=== PATIENT | male | born 1965 | race Caucasian/White ===

== ENCOUNTER 2021-10-25 06:54 | Day surgery (SDC) | payer OTHER, MEDICARE ==
[2021-10-23 12:25] VITALS: BP 178/81
[2021-10-23 12:46] LABS: CREATININE 0.8 mg/dL (0.5-1.5); POTASSIUM 4.4 mmol/L (3.5-5.1)
[~2021-10-25] VITALS: Ht 170.2 cm; Wt 72.6 kg
[2021-10-25] VITALS (14 sets, daily range): BP systolic 105–145; BP diastolic 61–84
[2021-10-25] MEDS: CEFAZOLIN SODIUM 1 GM VIAL IVP SCH ×2 (06:00→08:35)
[~2021-10-25 06:54] MED LIST: AMLO-258 PO; CARV25TA PO; GLIP5TAB11 PO; LISI20TA24 PO; METF-444 PO; PRAV20TA4 PO
[2021-10-25] MEDS ORDERED: 0.9%NACL 1000ML 1,000 ML IV ONE (07:12)
[2021-10-25] MEDS ORDERED: BUPIVACAINE/PF 0.25% 30ML VIAL IJ ONE (07:30)
[2021-10-25] MEDS ORDERED: NEOMY SULF/BACITRAC ZN/POLY OINT 30GM TUBE TP ONE (07:31)
[2021-10-25] MEDS ORDERED: MORPHINE PF 100MG/10ML AMP IV ONE (07:37)
[2021-10-25] MEDS ORDERED: LIDOCAINE PF 100MG/5ML (2%) SYRINGE 5ML ONE (07:39)
[2021-10-25] MEDS ORDERED: MIDAZOLAM HCL 1 MG/ML 2ML VIAL ONE (07:39)
[2021-10-25] MEDS ORDERED: PROPOFOL 10 MG/ML 20ML VIAL IV ONE (07:39)
[2021-10-25] MEDS ORDERED: EPHEDRINE SULFATE 50 MG/ML AMPULE ONE (09:21)
== END 2021-10-25 12:10 | disposition home or self-care (01) ==
LOC: DAH 06:54
PROVIDERS: ATTEND Urology
DX: N47.1 Phimosis (principal); Z20.822 Contact with and (suspected) exposure to COVID-19; I10 Essential (primary) hypertension; E11.9 Type 2 diabetes mellitus without complications; E78.5 Hyperlipidemia, unspecified; G80.9 Cerebral palsy, unspecified; Z79.84 Long term (current) use of oral hypoglycemic drugs; Z79.899 Other long term (current) drug therapy; Z98.890 Other specified postprocedural states; Z86.73 Personal history of transient ischemic attack (TIA), and cerebral infarction without residual deficits
CPT/HCPCS: 36415; 54161; 80048; 82948 ×2; 87635; A4215; A4221; A4222; A4223; A4600; A4663; A6260; C9803; J0690; J2001; J2250; J2274; J2704; J3490 ×2; J7030

== ENCOUNTER → 2023-05-06 | Outpatient (CLI) | payer OTHER, MEDICARE | END | disposition home or self-care (01) | LOC: SHCH 12:40 | PROVIDERS: ATTEND Internal Medicine Cardiovascular Disease | DX: I08.0 Rheumatic disorders of both mitral and aortic valves (principal); R94.31 Abnormal electrocardiogram [ECG] [EKG] | CPT/HCPCS: 93306 ==

== ENCOUNTER → 2023-06-12 | Outpatient (CLI) | payer OTHER, MEDICARE ==
[~2023-06-12] MED LIST changes: -GLIP5TAB11 PO; +GLIP5TAB15 PO; +REGADENOSON 0.4 MG/5 ML PF SYG IVP ONE
== END | disposition home or self-care (01) ==
LOC: SHCH 08:19
PROVIDERS: ATTEND Internal Medicine Cardiovascular Disease
DX: I25.5 Ischemic cardiomyopathy (principal); R94.39 Abnormal result of other cardiovascular function study; I50.22 Chronic systolic (congestive) heart failure; I25.2 Old myocardial infarction
CPT/HCPCS: 78452; 93017; J2785; A9500 ×2; 96374

== ENCOUNTER 2024-07-15 06:51 | Observation (INO) | payer OTHER, MEDICARE ==
[2024-07-11 09:27] VITALS: BP 162/90; PULSE 78; RESP 16; TEMP 97.6
[2024-07-11 09:30] LABS: BASOPHILS # (AUTO) 0.05 K/uL (0.00-0.20); BASOPHILS % (AUTO) 0.5 % (0.0-5.0); EOSINOPHILS # (AUTO) 0.19 K/uL (0.00-0.70); IMMATURE GRANULOCYTE ABSOLUTE 0.05 K/uL (0-1); LYMPHOCYTES # (AUTO) 3.1 K/uL (1.0-4.8); MEAN CORPUSCULAR HEMOGLOBIN 28.9 pg (27.0-33.0); MEAN CORPUSCULAR HGB CONC 33.5 g/dL (32.0-36.0); MEAN CORPUSCULAR VOLUME 86.3 fL (79-99); MONOCYTES # (AUTO) 0.6 K/uL (0.1-1.0); NEUTROPHILS # (AUTO) 5.5 K/uL (1.8-7.7); PLATELET COUNT (AUTO) 179 K/uL (130-400); RED BLOOD CELL COUNT(AUTO) 5.33 MIL/uL (4.50-6.20); RED CELL DISTRIBUTION WIDTH 14.3 % (11.0-15.5); WHITE BLOOD COUNT (AUTO) 9.5 K/uL (4.8-10.8)
[2024-07-11 09:41] LABS: APPEARANCE,URINE CLEAR (CLEAR); BILIRUBIN,URINE NEGATIVE (NEGATIVE); COLOR,URINE COLORLESS (YELLOW); GLUCOSE, URINE (UA) NEGATIVE (NEGATIVE); KETONES,URINE NEGATIVE (NEGATIVE); LEUKOCYTE ESTERASE ,URINE NEGATIVE Leu/uL (NEGATIVE); NITRATE,URINE NEGATIVE (NEGATIVE); OCCULT BLOOD,URINE NEGATIVE (NEGATIVE); PH,URINE 6.5 (5.0-8.0); PROTEIN,URINE NEGATIVE (NEGATIVE); UROBILINOGEN,URINE 0.2 mg/dL (0.2-1.0)
[2024-07-11 09:43] LABS: ALBUMIN 3.8 g/dL (3.5-5.0); BILIRUBIN,TOTAL 0.5 mg/dL (0.2-1.0); POTASSIUM 4.6 mmol/L (3.5-5.1); PROTHROMBIN TIME 10.8 SEC (9.6-11.6); TOTAL PROTEIN, SERUM 7.9 g/dL (6.0-8.3)
[2024-07-11 09:44] LABS: ADD UA MICROSCOPIC NO
[2024-07-11 09:44] LABS: PARTIAL THROMBOPLASTIN TIME 30.5 SEC (26.3-35.5)
[2024-07-15] VITALS (27 sets, daily range): BP systolic 97–165; BP diastolic 56–86; PULSE 55–117; RESP 12–20; TEMP 97.1–98.6
[~2024-07-15] VITALS: Ht 170.2 cm; Wt 71.7 kg
[~2024-07-15 06:51] MED LIST changes: +AMLO-257 PO; -AMLO-258 PO; +ASPI-1443 PO; +BACL10TA PO; -CARV25TA PO; -GLIP5TAB15 PO; +ICOS1CAP2 PO; +LABE200T7 PO; -LISI20TA24 PO; +NITR0.4T50 SL; +PIOG30TA70 PO; -PRAV20TA4 PO; -REGADENOSON 0.4 MG/5 ML PF SYG IVP ONE; +ROSU40TA88 PO; +SACU1TAB4 PO; +SPIR25TA6 PO
[2024-07-15] MEDS: ceFAZolin SODIUM 2 GM VIAL ONE (07:27)
[2024-07-15] MEDS: 0.9%NACL 1000ML 1,000 ML IV ONE (07:42)
[2024-07-15] MEDS ORDERED: BUPIvacaine/PF 0.25% 30ML VIAL IJ ONE (07:53)
[2024-07-15] MEDS ORDERED: dexaMETHasone SOD PHOSPHATE 10MG/ML 1ML VIAL ONE (08:31)
[2024-07-15] MEDS ORDERED: LIDOCAINE PF 100MG/5ML (2%) SYRINGE 5ML ONE (08:31)
[2024-07-15] MEDS ORDERED: ondanSETRON 4MG INJ ONE (08:32)
[2024-07-15] MEDS ORDERED: MIDAZOLAM HCL 1 MG/ML 2ML VIAL ONE (08:32)
[2024-07-15] MEDS ORDERED: rocuRONium bROMide 10MG/1ML 5ML VL ONE (08:32)
[2024-07-15] MEDS ORDERED: FENTanyl CITRate PF 50 MCG/1 ML 5ML AMP IV ONE (08:32)
[2024-07-15] MEDS ORDERED: proPOFol 10 MG/ML 20ML VIAL IV ONE (08:32)
[2024-07-15] MEDS: ceFAZolin SODIUM 2 GM VIAL IVPB ONE (09:00)
[2024-07-15] MEDS ORDERED: ePHEDrine SULFate 50 MG/ML AMPULE ONE (09:03)
[2024-07-15] MEDS ORDERED: NEOSTIGMINE METHYLSULFATE 1MG/ML IV ONE (09:29)
[2024-07-15] MEDS ORDERED: GLYCOPYRROLATE 0.2 MG/ML 5 ML VIAL ONE (09:29)
--- NOTE | 2024-07-15 10:10 | OP ---
Operative Note: DATE OF PROCEDURE: 07/15/24 SURGEON: JUANCARLOS HENDERSON MD PROCEDURE PERFORMED: Laparoscopic cholecystectomy. PREOPERATIVE DIAGNOSIS: Symptomatic cholelithiasis POSTOPERATIVE DIAGNOSIS: Same ANESTHESIA: General endotracheal. SURGEON: Juancarlos Henderson MD DEVICE LEFT IN PLACE: None. FLUIDS AND BLOOD PRODUCTS: Per anesthesia report. SPECIMENS REMOVED: Gallbladder. COMPLICATIONS: None immediate. PATIENT CONDITION: Stable. DESCRIPTION OF PROCEDURE: The patient was brought to the operating room and placed on the operating table in a supine position. Once general endotracheal anesthesia was achieved the patient's abdomen is prepped and draped in sterile fashion. We then proceeded to create a midline incision right at the umbilicus and dissected through the skin and subcutaneous tissue to expose the fascia. Divided the fascia at the midline and entered the abdominal cavity and then proceeded to introduce our origin trocar and obtained our pneumoperitoneum. Under direct visualization we then placed a 5 mm port in the epigastric position and then two 5 mm ports in the right flank. We identified the gallbladder and it was covered by omental adhesions. I bluntly and sharply dissected all the omental adhesions of the gallbladder until we were able to see the gallbladder. I then proceeded to retract the gallbladder from the fundus and infundibulum and started our dissection of the hilum. We bluntly dissected the hilum to expose the cystic duct and cystic ar tiffanie and once we had a critical view for safety. we proceeded to place two clips in the cystic duct proximally and distally. We divided between the clips and then did the same with our cystic artery. We then proceeded to remove the gallbladder off the liver bed using Bovie cautery and placed the gallbladder into an EndoCatch bag. Once this was done, we then proceeded to evaluate the liver bed for hemostasis. We made sure there was no bile leaks or any bleeding. We then proceeded to irrigate the right upper quadrant and removed all our ports under direct visualization, then removing the gallbladder through the umbilical port in the EndoCatch bag. We then closed our fascia at the umbilicus using 0 Vicryl in [id number] fashion. The skin incisions were closed using 4-0 Monocryl in subcuticular fashion. Dermabond were applied over top and a sterile dressing was applied. The patient tolerated the procedure well. JUANCARLOS HENDERSON MD Jul 15, 2024 10:10
[2024-07-15] MEDS ORDERED: NITROGLYCERIN 0.4 MG SL TAB SL PRN (11:30)
[2024-07-15] MEDS: traMADol HCL 50 MG TABLET PO SCH (11:30)
[2024-07-15] MEDS ORDERED: morPHINE 4 MG SYG IVP PRN (11:30)
[2024-07-15] MEDS ORDERED: BACLOFEN 10 MG TABLET PO PRN (11:30)
[2024-07-15] MEDS: ibuPROFEN 800 MG TAB PO SCH (13:15)
[2024-07-15] MEDS: traMADol HCL 50 MG TABLET PO PRN (13:15)
--- NOTE | 2024-07-15 14:47 | NUR ---
Attempted PT eval at 1335. Pt still groggy and on post op vitals. RHR >120 and patient with nausea. Pt reports at home he mobilizes with a WC and rarely ambulates or uses his crutches due to CVA. PT team to follow for eval with transfer and WC mobility if patient not appropriate for typical post abd surgery ambulation
[2024-07-15] MEDS: FISH OIL 1000 MG/CAP PO SCH (17:00)
[2024-07-15] MEDS ORDERED: DEXTROSE 50%-WATER 50 ML DISP.SYRIN IV PRN (17:30)
[2024-07-15] MEDS ORDERED: GLUCAGON 1MG KIT 1 MG ML IM PRN (17:30)
[2024-07-15] MEDS: INSULIN humuLIN R 100 UNIT/ML 3ML SQ SCH (17:30)
[2024-07-15] MEDS: SACUBITRIL/VALSARTAN 1 EACH TABLET PO SCH (21:43)
[2024-07-15] MEDS: atorVAStatin 40 MG TABLET PO SCH (21:43)
[2024-07-15] MEDS: LAbetaLOL HCL 200 MG TABLET PO SCH (21:44)
[2024-07-16] VITALS: BP 126/78; PULSE 97; RESP 20; TEMP 98.3
[2024-07-16 04:00] VITALS: BP 139/74; PULSE 89; RESP 10; TEMP 97.9
[2024-07-16 04:54] LABS: HEMATOCRIT 46.9 % (42-54); MEAN CORPUSCULAR HEMOGLOBIN 28.5 pg (27.0-33.0); MEAN CORPUSCULAR HGB CONC 33.7 g/dL (32.0-36.0); MEAN CORPUSCULAR VOLUME 84.5 fL (79-99); RED BLOOD CELL COUNT(AUTO) 5.55 MIL/uL (4.50-6.20); WHITE BLOOD COUNT (AUTO) 17.5 K/uL (4.8-10.8)
[2024-07-16 05:36] LABS: ALBUMIN 3.5 g/dL (3.5-5.0); BILIRUBIN,TOTAL 0.6 mg/dL (0.2-1.0); CREATININE 1.4 mg/dL (0.5-1.3); POTASSIUM 4.6 mmol/L (3.5-5.1); TOTAL PROTEIN, SERUM 7.6 g/dL (6.0-8.3)
[2024-07-16 08:06] VITALS: BP 136/73; PULSE 94; RESP 18; TEMP 98.3
[2024-07-16] MEDS: metFORmin HCL 500 MG TABLET PO SCH (08:39)
[2024-07-16] MEDS: ASPIRIN 81 MG EC TAB PO SCH (08:40)
[2024-07-16] MEDS: PIOGLITAZONE 30MG TAB PO SCH (08:40)
[2024-07-16] MEDS: amLODIPine 5 MG TAB PO SCH (08:41)
[2024-07-16] MEDS: SPIRONOLACTONE 25 MG TAB PO SCH (08:43)
--- NOTE | 2024-07-16 11:24 | DS ---
Discharge Summary HOSPITAL COURSE SUMMARY: Status post cholecystectomy. Doing well. Tolerating his diet. It is passing gas and had a small smear of a bowel movement. Pain is minimal and controlled with oral pain medication. No nausea no vomiting. APPLICATION DEVELOPMENT PROJECT MANAGER(S): None PROCEDURES: Laparoscopic cholecystectomy PROBLEM(S): [] DISCHARGE INSTRUCTIONS: Patient to wear abdominal binder for transfers. Sister is to come and be present for the physical therapy evaluation on how to do the transfers postop. Follow up in the office in two weeks. Stool softeners as needed for constipation Home Meds Reported Medications Spironolactone (Spironolactone) 25 Mg Tablet, 25 MG PO DAILY, TAB 07/11/24 Pioglitazone HCl (Pioglitazone HCl) 30 Mg Tablet, 30 MG PO DAILY, TAB 07/11/24 Metformin HCl (Metformin HCl) 500 Mg Tablet, 500 MG PO DAILY, TAB 07/11/24 Icosapent Ethyl (Icosapent Ethyl) 1 Gram Capsule, 2 GM PO BIDMEALS, CAP 07/11/24 Rosuvastatin Calcium (Rosuvastatin Calcium) 40 Mg Tablet, 40 MG PO HS, TAB 07/11/24 Aspirin (Aspirin EC) 81 Mg Tablet.dr, 81 MG PO DAILY, TAB 07/11/24 Sacubitril/Valsartan (Entresto 97 mg-103 mg Tablet) 97 Mg-103 Mg Tablet, 1 EACH PO BID, TAB 07/11/24 Labetalol HCl (Labetalol HCl) 200 Mg Tablet, 200 MG PO BID, TAB 07/11/24 Amlodipine Besylate (Amlodipine Besylate) 5 Mg Tablet, 5 MG PO DAILY, TAB 07/11/24 Nitroglycerin (Nitroglycerin) 0.4 Mg Tab.subl, 0.4 MG SL AD PRN for CHEST PAIN, TAB.SL 07/11/24 Baclofen (Baclofen) 10 Mg Tablet, 10 MG PO BID PRN for PAIN, TAB 07/11/24 Discontinued Reported Medications Nitroglycerin (Nitroglycerin) 0.4 Mg Tab.subl, 0.4 MG SL AD PRN for CHEST PAIN, TAB.SL 07/11/24 Pravastatin Sodium (Pravastatin Sodium) 20 Mg Tablet, 20 MG PO HS, TAB 10/24/21 Amlodipine Besylate (Amlodipine Besylate) 10 Mg Tablet, 10 MG PO AM for 30 Days, #30 TAB 0 Refills 10/24/21 Metformin HCl (Metformin HCl) 500 Mg Tablet, 500 MG PO AM, TAB 10/24/21 Glipizide (Glipizide) 5 Mg Tablet, 5 MG PO AM, TAB 10/24/21 Carvedilol (Carvedilol) 25 Mg Tablet, 25 MG PO BID, TAB 10/24/21 Lisinopril (Lisinopril) 20 Mg Tablet, 20 MG PO AM, TAB 10/24/21 JUANCARLOS HENDERSON MD Jul 16, 2024 11:24
[2024-07-16 11:30] VITALS: BP 134/72; PULSE 93; RESP 18; TEMP 98
== END 2024-07-16 15:00 | disposition home or self-care (01) ==
LOC: DAH 06:51 → DAHIP 06:52 → DAH 06:52 → 4BH 10:34
PROVIDERS: ADMIT Student in an Organized Health Care Education/Training Program; ATTEND Student in an Organized Health Care Education/Training Program
DX: K80.10 Calculus of gallbladder with chronic cholecystitis without obstruction (principal); K82.8 Other specified diseases of gallbladder; G89.18 Other acute postprocedural pain; K66.0 Peritoneal adhesions (postprocedural) (postinfection); E11.9 Type 2 diabetes mellitus without complications; I10 Essential (primary) hypertension; E75.5 Other lipid storage disorders; Z86.73 Personal history of transient ischemic attack (TIA), and cerebral infarction without residual deficits; Z79.899 Other long term (current) drug therapy; Z86.2 Personal history of diseases of the blood and blood-forming organs and certain disorders involving the immune mechanism; Z79.84 Long term (current) use of oral hypoglycemic drugs
CPT/HCPCS: 80053 ×2; 85025; 85610; 85730; 81003; 36415 ×2; 47562; 88304; 82948 ×6; 64488; 85027; A6260; J1815; J0665 ×2; A4663; J7030 ×2; J3010; J1100; J3490 ×3; J2003; J2250; J2704; J2405; J2710; J0690 ×2; C1769 ×3; A4649 ×2; A4215; A4223; A4222; A4221; A4600; G0378

== ENCOUNTER → 2025-03-15 | Outpatient (CLI) | payer OTHER, MEDICARE | END | disposition home or self-care (01) | LOC: WHH 10:27 | PROVIDERS: ATTEND Internal Medicine | DX: E11.51 Type 2 diabetes mellitus with diabetic peripheral angiopathy without gangrene (principal); I70.209 Unspecified atherosclerosis of native arteries of extremities, unspecified extremity; Z79.899 Other long term (current) drug therapy; Z86.73 Personal history of transient ischemic attack (TIA), and cerebral infarction without residual deficits | CPT/HCPCS: 93922 ==

== ENCOUNTER → 2025-08-21 | Outpatient (CLI) | payer OTHER, MEDICAID ==
[~2025-08-21] MED LIST changes: +LABE-10 PO; -LABE200T7 PO
--- NOTE | 2025-08-21 20:31 | HMCIMG ---
STUDY: MRI cervical spine without IV contrast. 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 TECHNIQUE: Multiplanar, multisequence MRI of the cervical spine was performed without intravenous contrast. COMPARISON: None available. FINDINGS: Alignment: Loss of normal cervical lordosis. No traumatic malalignment. Vertebrae: No acute compression fracture or infiltrative marrow process. Prominent anterior and posterior marginal osteophytes. Disc desiccation consistent with grade III???IV degenerative disc disease. Spinal Cord: Ventral cord indentation at multiple levels. Myelomalacia signal identified at the cervicomedullary junction. Degenerative Changes (Global): Extensive uncovertebral and facet joint degeneration throughout the subaxial cervical spine. Ossification of the posterior longitudinal ligament (OPLL) contributes to canal narrowing. Findings by Level: C3???C4 through C6???C7: Multilevel disc???osteophyte complexes producing thecal sac compression and grade II central canal stenosis, with ventral cord indentation. No significant neural foraminal stenosis. C5???C6: Annular fissure with left posterior paracentral disc protrusion, contacting the left ventral nerve root. Contributes to canal narrowing. C1???C2 (Atlanto-axial Joint): Degenerative changes of the lateral atlanto-axial joints. In combination with OPLL, this results in grade III central canal stenosis with cord compression. Paraspinal Soft Tissues: Normal. IMPRESSION: * Ossification of the posterior longitudinal ligament (OPLL) and lateral atlanto-axial joint degeneration producing grade III central canal stenosis with cord compression and myelomalacia at the cervicomedullary junction . Severe multilevel cervical spondylosis with global grade III???IV disc degeneration, anterior/posterior osteophytes, uncovertebral and facet arthropathy, and loss of cervical lordosis * Multilevel disc???osteophyte complexes (C3???C7) causing thecal sac compression and grade II canal stenosis with ventral cord indentation. * Left posterior paracentral disc protrusion at C5???C6 with annular fissure and left ventral nerve-root contact. * No acute fracture or traumatic subluxation. /[place]
== END | disposition home or self-care (01) ==
LOC: RAH 15:01
PROVIDERS: ATTEND Psychiatry & Neurology Neurology
DX: M47.812 Spondylosis without myelopathy or radiculopathy, cervical region (principal); G80.1 Spastic diplegic cerebral palsy; M25.78 Osteophyte, vertebrae; M48.02 Spinal stenosis, cervical region; G95.89 Other specified diseases of spinal cord; M50.322 Other cervical disc degeneration at C5-C6 level
CPT/HCPCS: 72141

== ENCOUNTER → 2025-08-22 | Outpatient (CLI) | payer OTHER, MEDICAID ==
--- NOTE | 2025-08-24 15:36 | HMCIMG ---
EXAM: MR Brain Without IV Contrast CLINICAL HISTORY: G80.1 Spastic diplegic cerebral palsy (Hx) / G80.1 Spastic diplegic cerebral palsy (DICOM Hx) (DICOM Hx) TECHNIQUE: Multiplanar multi-sequence MRI of the brain. CONTRAST: None COMPARISON: None provided. FINDINGS: Mild age-related degenerative change with prominent sulci and basilar cisterns. T2 and FLAIR hyperintensities in the deep periventricular white matter in the deep periventricular white matter and baker radiata sequela of chronic microvascular ischemic change. A 1.1 x 1.5 cm T2 hyperintense lesion in the dorsomedial aspect of the left thalamus with a T2 hypointense rim sequela of prior hemorrhage. Subdural hygroma along the anterior interhemispheric fissure at the level of the superior and middle inferior frontal gyri. No abnormal parenchymal signal is present. No evidence of acute cortical infarction, hemorrhage, mass, or mass effect. The ventricular system is normal in size, shape, and contour. No hydrocephalus. No abnormal extra-axial fluid collection is present. The marrow signal within the skull base and calvarium is intact. A flow void in the left vertebral artery is not visualized, probably a severely hypoplastic left vertebral artery. Normal flow void in the right vertebral artery, basilar artery, and posterior cerebral artery. A prominent right posterior communicating artery is identified. The paranasal sinuses and mastoid air cells are clear. Mildly deviated nasal septum towards the right. IMPRESSION: No acute intracranial abnormality or mass. A 1.1 x 1.5 cm T2 hyperintense lesion in the dorsomedial aspect of the left thalamus with a T2 hypointense rim sequela of prior hemorrhage. Age-related degenerative change. Changes of chronic microvascular ischemic disease.Subdural hygroma along the anterior interhemispheric fissure at the level of the superior and middle inferior frontal gyri. /[place]
== END | disposition home or self-care (01) ==
LOC: RAH 13:33
PROVIDERS: ATTEND Psychiatry & Neurology Neurology
DX: I67.82 Cerebral ischemia (principal); G96.08 Other cranial cerebrospinal fluid leak; J34.2 Deviated nasal septum; G80.1 Spastic diplegic cerebral palsy
CPT/HCPCS: 70551